=== PATIENT | female | born 1995 | race Caucasian/White ===

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

== ENCOUNTER → 2017-02-24 | Outpatient (CLI) | payer BC, MEDICAID ==
[~2017-02-24] MED LIST changes: -E-Z-GAS II EFFERVESCENT PACKET (SODIUM BICARB./CITRIC ACID/SIMETHICONE) As Ordered ONE; -E-Z-HD 98% w/w 340GM SUSP BTL As Ordered ONE; -E-Z-PAQUE 96% w/w SUSP 176GM BTL As Ordered ONE; +ISOVUE-370 76% 100ML VIAL (Q9967) As Ordered ONE
--- NOTE | 2017-02-24 10:19 | REP ---
CT NECK WITH CONTRAST: HISTORY: Neck fullness. CONTRAST: Isovue 370, 75 mL. The naso-, clive-, and hypopharynx, larynx and subglottic trachea are normal in appearance. The salivary and thyroid glands are normal in size and density. Small lymph nodes less than 1 cm in size are present in the internal jugular chains, posterior triangles, submandibular and submental areas. The lung apices are clear. The visualized sinuses are clear. IMPRESSION: There is no neck mass or adenopathy. Signed by Linus Ortiz MD 02/24/2017 10:33 A
== END ==
LOC: M RAD 08:51
PROVIDERS: ATTEND Otolaryngology
DX: R22.1 Localized swelling, mass and lump, neck (principal)
CPT/HCPCS: 70491; Q9967

== ENCOUNTER → 2018-10-08 | Outpatient (REF) | payer BC, MEDICAID | LOC: M SFHCLERA 15:06 | PROVIDERS: ATTEND Physician Assistant | DX: J02.9 Acute pharyngitis, unspecified (principal) ==

== ENCOUNTER → 2024-01-18 | Outpatient (REF) | payer BC, OTHER ==
[2024-01-18 17:42] LABS: APPEARANCE, URINE CLEAR (CLEAR); BACTERIA, URINE AUTO NEGATIVE (NEGATIVE); BILIRUBIN, URINE AUTO NEGATIVE (NEGATIVE); BLOOD, URINE BLOOD NEGATIVE (NEGATIVE); COLOR, URINE YELLOW (YELLOW); GLUCOSE, URINE (UA) AUTO NEGATIVE (NEGATIVE); KETONE, URINE AUTO NEGATIVE (NEGATIVE); LEUKOCYTE ESTERASE, URINE AUTO NEGATIVE (NEGATIVE); MUCUS, URINE SMALL (NEGATIVE); NITRITE, URINE AUTO NEGATIVE (NEGATIVE); PROTEIN, URINE AUTO NEGATIVE (NEGATIVE); RBC, URINE AUTO 1 /HPF (0-3); SPECIFIC GRAVITY URINE AUTO 1.014 (1.002-1.035); SQUAMOUS EPITHELIAL CELL UR AU 0 /HPF (0-6); UROBILINOGEN, URINE AUTO 0.2 mg/dL (0.0-2.0); WBC, URINE AUTO 0 /HPF (0-3)
[2024-01-18 19:24] LABS: TOTAL PROTEIN,RANDOM URINE 12.3 MG/DL (0.0-14.0)
[2024-01-18 19:30] LABS: CREATININE,RANDOM URINE 118.5 MG/DL
== END ==
LOC: M SFHCRHEU 15:36
PROVIDERS: ATTEND Internal Medicine
DX: R76.8 Other specified abnormal immunological findings in serum (principal)

== ENCOUNTER → 2025-03-22 | Outpatient (REF) | payer BC, OTHER | LOC: M SFHCRHEU 11:38 | PROVIDERS: ATTEND Internal Medicine | DX: R53.83 Other fatigue (principal) ==